=== PATIENT | female | born 1930 | race Caucasian/White ===

== ENCOUNTER → 2017-03-14 | Outpatient (CLI) | payer OTHER, BC | LOC: FIMAGING 14:24 | PROVIDERS: ATTEND Physical Medicine & Rehabilitation | DX: M25.512 Pain in left shoulder (principal) ==

== ENCOUNTER 2018-05-08 13:08 | Emergency (ER) | payer OTHER, BC ==
--- NOTE | 2018-05-08 13:39 | EDPHY ---
H & P Time Seen by Provider: 05/08/18 13:35 HPI/ROS: CHIEF COMPLAINT: Right thumb pain HISTORY OF PRESENT ILLNESS: 87-year-old female via private vehicle complaining of right thumb pain which occurred 11 days ago when a friend of hers fell on top of her. Patient notes decreased ability to oppose thumb. Pain to the 1st metacarpal. Mild ecchymotic discoloration. No paresthesia. No sensory deficits. PRIMARY CARE PROVIDER:Dr. Schaefer REVIEW OF SYSTEMS: A ten point review of systems was performed and is negative with the exception of the items mentioned in the HPI PHYSICAL EXAM (Prior to examination, patient consented to physical exam, hands were washed and my usual and customary physical exam procedures followed) 1) GENERAL: Well-developed, well-nourished, alert and oriented. Appears to be in no acute distress. 2) HEAD: Normocephalic 3) HEENT: Pupils equal, round, reactive to light bilaterally. 4) LUNGS: Breathing comfortably. 5) MUSCULOSKELETAL: Soft compartments. Unable are unwilling to completely oppose secondary to pain. Tender to palpation 1st metacarpal. No deformity. No snuffbox pain. 6) SKIN: Ecchymosis noted. 7) VASCULAR: pulses and cap refill present are brisk 8) NEUROLOGIC: Radial, ulnar, median nerve function intact with no deficits appreciated on exam DIFFERENTIAL DIAGNOSIS: in no particular order including but not limited to fracture, sprain, compartment syndrome Procedure: Splint A Velcro thumb spica splint was applied by ER durability technician. After application of the splint I returned and re-examined the patient. The splint was adequately immobilizing the joint and distal to the splint the patient's circulation and sensation were intact. Patient shows no signs of compartment syndrome. Was given orthopedic precautions. Smoking Status: Never smoked Constitutional: Initial Vital Signs Temperature (C) 36.6 C 05/08/18 13:20 Heart Rate 71 05/08/18 13:20 Respiratory Rate 16 05/08/18 13:20 Blood Pressure 155/78 H 05/08/18 13:20 O2 Sat (%) 96 05/08/18 13:20 O2 Delivery Mode Room Air Allergies/Adverse Reactions: alendronate sodium [From Fosamax] Allergy (Unknown, Verified 05/08/18 13:19) oxymetazoline HCl [From Will-Synephrine] Allergy (Unknown, Verified 05/08/18 13: 19) phenylephrine HCl [From Will-Synephrine] Allergy (Unknown, Verified 05/08/18 13: 19) raloxifene HCl [From Evista] Allergy (Unknown, Verified 05/08/18 13:19) xylometazoline HCl [From Will-Synephrine] Allergy (Unknown, Verified 05/08/18 13: 19) flakito Allergy (Unknown, Uncoded 03/28/15 17:58) Home Medications: Medication Instructions Recorded Aspirin [Aspirin 81mg (OTC)] 81 mg PO DAILY 02/13/12 CALCIUM CARBONATE/VITAMIN D3 1 each PO BID 02/13/12 [CALCIUM + D 600 MG TABLET] Cholecalciferol Vit D3 [Vitamin D3 2,000 units PO DAILY 02/13/12 2000 units (OTC)] Multivitamins [Multivitamin (OTC)] 1 each PO DAILY 02/13/12 Rosuvastatin Calcium [Crestor 10mg 10 mg PO HS 02/13/12 (RX)] Md Reconcile 02/18/13 02/18/13 Pharmacy Completed 02/18/13 02/18/13 Fish Oil 03/28/15 Glucosamine 03/28/15 MDM/Departure - MDM Imaging Results: Imaging Impressions Hand X-Ray 05/08/18 13:37 Impression: 1. No evidence of recent fracture right hand. 2. Degenerative joint disease/osteoarthritis in distribution as detailed above. Images reviewed myself ED Course/Re-evaluation: Re-evaluation with serial exams. Discussed the imaging results. She is neurovascular intact. Discussed imaging, discussed limitations of x-ray. Informed that ulnar collateral ligament or other non osseous injury is not ruled out. Recommend splinting. Recommend follow up with Hand surgery. She is agreeable with this plan. Usual and customary orthopedic precautions instructions provided. I saw this patient independently based on established practice protocols. Care of patient under supervision of secondary supervising physician Dr Amy Luo. - Depart Disposition: Home, Routine, Self-Care Clinical Impression: Sprain of right thumb Qualifiers: Encounter type: initial encounter Sprain of finger site: metacarpophalangeal joint Qualified Code(s): S63.641A - Sprain of metacarpophalangeal joint of right thumb, initial encounter Condition: Good Instructions: Skier's Thumb (ED), Finger Sprain (ED) Additional Instructions: Return to the ER immediately if you experience discoloration, have worsening pain, numbness, tingling, or any other symptoms that concern you. If you received x-rays in the emergency department today, be advised, that ligamentous , tendon, muscular, and other non-bony injury cannot be fully ruled out. Try to keep your affected extremity elevated above the level of your chest, and keep cold packs on the affected area, for the next 48 hours. Referrals: Júnior Cano MD [Medical Doctor] - 2-3 days, call for appt.
[2018-05-08 14:20] VITALS: BP 133/85
== END 2018-05-08 14:17 | disposition home or self-care (01) ==
DX: S63.641A Sprain of metacarpophalangeal joint of right thumb, initial encounter (principal); W50.0XXA Accidental hit or strike by another person, initial encounter; Y99.8 Other external cause status
CPT/HCPCS: 73130; 99283; L3807